=== PATIENT | female | born 1995 | race Caucasian/White ===

== ENCOUNTER 2018-09-28 16:40 | Emergency (ER) | payer OTHER ==
[2018-09-28 17:43] LABS: BASOPHILS % (AUTO) 0.5 %; EOSINOPHILS # (AUTO) 0.2 10^3/uL (0.0-0.7); EOSINOPHILS % (AUTO) 1.7 %; HGB - HEMOGLOBIN 12.3 g/dL (12.0-16.0); LYMPHOCYTES # (AUTO) 1.5 10^3/uL (1.5-3.5); LYMPHOCYTES % (AUTO) 15.2 %; MEAN CORPUSCULAR HGB CONC 34.3 g/dL (32.0-36.0); MEAN CORPUSCULAR VOLUME 87.5 fL (81.0-99.0); MEAN PLATELET VOLUME 7.5 fL (7.9-10.8); MONOCYTES # (AUTO) 0.5 10^3/uL (0.0-1.0); MONOCYTES % (AUTO) 5.4 %; NEUTROPHILS # (AUTO) 7.5 10^3/uL (1.5-6.6); NEUTROPHILS % (AUTO) 77.2 %; PLT - PLATELET COUNT 225 10^3/uL (130-450); RED BLOOD COUNT 4.09 10^6/uL (4.20-5.40); RED CELL DISTRIBUTION WIDTH 13.2 % (12.0-15.0); WHITE BLOOD COUNT 9.7 x10^3/uL (4.8-10.8)
--- NOTE | 2018-09-28 17:47 | ED Physician Documentation ---
PD HPI FEMALE - Stated complaint Stated Complaint: 18 WKS/CRAMP - Chief complaint Chief Complaint: Abd Pain - History obtained from History obtained from: Patient - History of Present Illness Timing - onset: How many hours ago (1) Timing - duration: Hours (1) Timing - details: Abrupt onset, Now resolved Pain level max: 2 Pain level max: 0 Associated symptoms: Abdominal pain. No: Fever, Back pain, Pelvic pain, Vaginal bleeding, Vaginal discharge, Genital sore/lesion, Dysuria, Urinary frequency, Hematuria Contributing factors: OB-EDUCATIONAL THERAPIST History: G (1), P (0). No: Termination(s), Miscarriage(s), Prior vag delivery, Prior C section, Prior ectopic Similar symptoms before: Has not had sx before Recently seen: Not recently seen - Additional information Additional information: 23-year-old female with no past medical or surgical history stated she is , 18 weeks , LMP was May 25, 2018, EDC is March 01, 2019 here with complaint of feeling wet while she was showering. And she noticed when she wiped herself there was clear liquidHe has small amounts. No further recurrence. Denies any vaginal discharge or bleeding. She stated she has a little cramping which started yesterday but increased today. Denies any trauma, travel or recent illness.She called her OB clinic at [facility] and was told to go to the closest emergency room. Denies any trauma, travel, recent illness, sexual activity recently. Review of Systems Ten Systems: 10 systems reviewed and negative Constitutional: denies: Fever, Chills Cardiac: denies: Chest pain / pressure Respiratory: denies: Dyspnea, Cough GI: reports: Abdominal Pain. denies: Nausea, Vomiting, Constipation, Diarrhea : reports: Now EGA. denies: Dysuria, Frequency, Incontinent, Hematuria, Discharge, Vaginal bleeding Musculoskeletal: denies: Back pain Neurologic: denies: Generalized weakness PD PAST MEDICAL HISTORY - Past Medical History Past Medical History: Yes - Past Surgical History Past Surgical History: Yes HEENT: Tonsil/Adenoidectomy - Present Medications Home Medications: Ambulatory Orders Medication Instructions Recorded Confirmed Pnv No.115/Iron Fumarate/FA 1 09/28/18 [ 19 Chewable Tablet] - Allergies Allergies/Adverse Reactions: Allergies Allergy/AdvReac Type Severity Reaction Status Date / Time No Known Drug Allergies Allergy Verified 09/28/18 16:54 - Social History Does the pt smoke?: No Smoking Status: Never smoker Does the pt drink ETOH?: No Does the pt have substance abuse?: No - Immunizations Immunizations are current?: Yes - POLST Patient has POLST: No PD ED PE NORMAL - Vitals Vital signs reviewed: Yes - General General: Alert and oriented X 3, No acute distress, Well developed/nourished - HEENT HEENT: Moist mucous membranes - Neck Neck: Supple, no meningeal sign - Cardiac Cardiac: RRR, No murmur - Respiratory Respiratory: No respiratory distress, Clear bilaterally - Abdomen Abdomen: Normal bowel sounds, Soft, Non tender, Non distended - Female Female : [employer]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 Vaginal vault dry. Rupture of membrane plus test was performed without any complications.) - Back Back: No CVA TTP - Derm Derm: Normal color, Warm and dry - Extremities Extremities: No deformity, Normal ROM s pain, No edema - Neuro Neuro: Alert and oriented X 3 - Psych Psych: Normal mood, Normal affect Results - Vitals Vitals: Vital Signs - 24 hr 09/28/18 09/28/18 16:51 18:52 Temperature 37.1 C 37.1 C Heart Rate 115 H 74 Respiratory 18 12 Rate Blood Pressure 153/78 H 122/77 O2 Saturation 100 100 Oxygen O2 Source Room air - Labs Labs: Laboratory Tests 09/28/18 09/28/18 09/28/18 17:03 17:25 17:25 WBC 9.7 RBC 4.09 L Hgb 12.3 Hct 35.7 L MCV 87.5 MCH 30.0 MCHC 34.3 RDW 13.2 Plt Count 225 MPV 7.5 L Neut # (Auto) 7.5 H Lymph # (Auto) 1.5 Scott # (Auto) 0.5 Eos # (Auto) 0.2 Baso # (Auto) 0.0 Absolute Nucleated RBC 0.00 Nucleated RBC % 0.0 Sodium 136 Potassium 3.5 Chloride 106 Carbon Dioxide 23 Anion Gap 7.0 BUN 10 Creatinine 0.5 Estimated GFR (MDRD) 153 Glucose 85 Calcium 9.2 Total Bilirubin 0.4 AST 16 ALT 12 Alkaline Phosphatase 38 L Total Protein 6.9 Albumin 3.6 Globulin 3.3 Albumin/Globulin Ratio 1.1 Lipase 29 HCG, Quant Urine Color YELLOW Urine Clarity CLEAR Urine pH 6.5 Ur Specific [place] <=1.005 Urine Protein NEGATIVE Urine Glucose (UA) NEGATIVE Urine Ketones NEGATIVE Urine Occult Blood NEGATIVE Urine Nitrite NEGATIVE Urine Bilirubin NEGATIVE Urine Urobilinogen 0.2 (NORMAL) Ur Leukocyte Esterase NEGATIVE Ur Microscopic Review NOT INDICATED Urine Culture Comments NOT INDICATED Membranes Rupture 09/28/18 09/28/18 17:25 19:49 WBC RBC Hgb Hct MCV MCH MCHC RDW Plt Count MPV Neut # (Auto) Lymph # (Auto) Scott # (Auto) Eos # (Auto) Baso # (Auto) Absolute Nucleated RBC Nucleated RBC % Sodium Potassium Chloride Carbon Dioxide Anion Gap BUN Creatinine Estimated GFR (MDRD) Glucose Calcium Total Bilirubin AST ALT Alkaline Phosphatase Total Protein Albumin Globulin Albumin/Globulin Ratio Lipase HCG, Quant 30385.00 Urine Color Urine Clarity Urine pH Ur Specific [place] Urine Protein Urine Glucose (UA) Urine Ketones Urine Occult Blood Urine Nitrite Urine Bilirubin Urine Urobilinogen Ur Leukocyte Esterase Ur Microscopic Review Urine Culture Comments Membranes Rupture NEGATIVE PD MEDICAL DECISION MAKING - ED course Complexity details: re-evaluated patient, considered differential (, Rupture of membrane, Threatened miscarriage, demise, UTI, normal physiologic vaginal secretions.), d/w patient, d/w family, d/w corporate consultant ED course: 1904 patient and spouse informed of test results including ultrasound. Inform of pending OB doctor return phone call. Patient denies any abdominal pain or recurrence of vaginal secretions. 1914discussed case with OB doctor aircraft electronics technical officer Dr. Jimenez Informed of ultrasound results and its specific. He wants to do an amniotic test which can be done by the OB L&D nurse. He will call them to go to the emergency room with the test.1930 L&D nurse here with the amniotic fluid test. See physical exam notes. 2029 Rupture of membrane test was negative. Patient informed about that and she stated she has an appointment with her OB next week and will follow up. Departure - Departure Disposition: 01 Home, Self Care Clinical Impression: Abdominal pain Qualifiers: Abdominal location: lower abdomen, unspecified Qualified Code(s): R10.30 - Lower abdominal pain, unspecified Qualifiers: Weeks of gestation: 18 weeks Qualified Code(s): Z3A.18 - 18 weeks gestation of Condition: Stable Instructions: ED Care, ED Preg Established Normal Sxs Comments: If worsening abdominal cramping, increasing vaginal secretions or vaginal bleeding return to the emergency room. Otherwise keep your OB appointment as scheduled next week on Wednesday.
[2018-09-28 17:56] LABS: ALBUMIN 3.6 g/dL (3.2-5.5); ALBUMIN/GLOBULIN RATIO 1.1 (1.0-2.2); BILIRUBIN,TOTAL 0.4 mg/dL (0.2-1.0); CALCIUM 9.2 mg/dL (8.5-10.3); CREATININE 0.5 mg/dL (0.4-1.0); TOTAL PROTEIN 6.9 g/dL (6.7-8.2)
[2018-09-28 18:00] LABS: BILIRUBIN,URINE NEGATIVE (NEGATIVE); GLUCOSE, URINE (UA) NEGATIVE (NEGATIVE); KETONES,URINE (UA) NEGATIVE (NEGATIVE); LEUKOCYTE ESTERASE, URINE NEGATIVE (NEGATIVE); NITRITE,URINE NEGATIVE (NEGATIVE); OCCULT BLOOD,URINE NEGATIVE (NEGATIVE); PH,URINE 6.5 PH (5.0-7.5); PROTEIN,URINE NEGATIVE (NEGATIVE); UROBILINOGEN,URINE 0.2 (NORMAL) E.U./dL (NORMAL)
[2018-09-28 18:14] LABS: CLARITY,URINE CLEAR (CLEAR)
--- NOTE | 2018-09-28 19:04 | Ultrasound Report ---
Reason: cramping Procedure Date: 09/28/2018 Accession Number: [id number] / [id number] Procedure: US - OB 14+ Weeks CPT Code: FULL RESULT: EXAM: LIMITED OBSTETRICAL ULTRASOUND EXAM DATE: 09/28/2018 06:11 PM. CLINICAL HISTORY: Cramping. Evaluate KATHERIN and cervical length. COMPARISON: OB ultrasound 07/15/2018. TECHNIQUE: Real-time sonographic evaluation of the fetus performed by the enamel cracker. Multiple order entry representative static images were saved for review. DATING: Established EGA 18 weeks 0 days with ABEL 03/01/2019. GENERAL EVALUATION Valadez . Cardiac activity: 143 bpm. movement: Visualized. Presentation: Mainly breech, moving Placenta: Anterior position. Low lying placenta with the edge located 1 cm away from the internal cervical loss and follow-up is recommended. Borderline thickened placenta measuring 3.3 cm. Follow-up of these findings recommended. Also, recommend a complete anatomic survey at 20 weeks gestational age. No evidence for placenta previa or abruption. Amniotic fluid: Normal. KATHERIN 13.2 cm. MVP 5.4 cm. Cervical length measures 3.6 cm, appears long and closed. IMPRESSION: 1. Valadez live intrauterine with gestational age 18 weeks 0 days based on established ABEL. 2. Normal KATHERIN measuring 13.2 cm. 3. Cervical length measures 3.6 cm, appears long and closed. 4. Low lying placenta with the edge located 1 cm away from the internal cervical loss and follow-up is recommended. Borderline thickened placenta measuring 3.3 cm. Follow-up of these findings recommended. Also, recommend a complete anatomic survey at 20 weeks gestational age. RADIA
[2018-09-28 20:17] LABS: RUPTURE OF MEMBRANES PLUS NEGATIVE (NEGATIVE)
[2018-09-28 20:39] VITALS: BP 117/80
== END 2018-09-28 20:37 | disposition home or self-care (01) ==
LOC: ED 16:40
DX: O99.89 Other specified diseases and conditions complicating pregnancy, childbirth and the puerperium (principal); R10.30 Lower abdominal pain, unspecified; Z3A.18 18 weeks gestation of pregnancy
CPT/HCPCS: 36415; 76805; 80053; 81001; 81003; 83690; 84112; 84702; 85025; 87086; 99283

== ENCOUNTER 2019-01-29 19:42 | Outpatient (CLI) | payer OTHER ==
[2019-01-29 20:08] VITALS: BP 135/80
== END 2019-01-29 21:15 | disposition home or self-care (01) ==
LOC: WFO 19:42 → FBP 19:45 → WFO 21:15
PROVIDERS: ATTEND Obstetrics & Gynecology
DX: O99.89 Other specified diseases and conditions complicating pregnancy, childbirth and the puerperium (principal); N94.89 Other specified conditions associated with female genital organs and menstrual cycle; Z3A.35 35 weeks gestation of pregnancy
CPT/HCPCS: 99212

== ENCOUNTER 2019-01-31 12:36 | Outpatient (CLI) | payer OTHER ==
[2019-01-31 12:48] VITALS: BP 124/77
[2019-01-31 13:06] LABS: BILIRUBIN,URINE NEGATIVE (NEGATIVE); GLUCOSE, URINE (UA) NEGATIVE (NEGATIVE); KETONES,URINE (UA) NEGATIVE (NEGATIVE); LEUKOCYTE ESTERASE, URINE NEGATIVE (NEGATIVE); NITRITE,URINE NEGATIVE (NEGATIVE); OCCULT BLOOD,URINE NEGATIVE (NEGATIVE); PROTEIN,URINE NEGATIVE (NEGATIVE); UROBILINOGEN,URINE 0.2 (NORMAL) E.U./dL (NORMAL)
[2019-01-31 13:10] LABS: CLARITY,URINE CLEAR (CLEAR)
[2019-01-31 13:22] LABS: BACTERIA,URINE Few /HPF (None Seen); RBC,URINE 0-5 /HPF (0-5); SQUAMOUS EPITHELIAL CELL,UR FEW Squamous (<= Few)
== END 2019-01-31 13:50 | disposition home or self-care (01) ==
LOC: WFO 12:36 → FBP 12:39 → WFO 13:50
PROVIDERS: ATTEND Obstetrics & Gynecology
DX: O99.89 Other specified diseases and conditions complicating pregnancy, childbirth and the puerperium (principal); R25.2 Cramp and spasm; Z3A.35 35 weeks gestation of pregnancy
CPT/HCPCS: 81001; 87086; 99213

== ENCOUNTER 2019-02-06 22:50 | Outpatient (CLI) | payer OTHER ==
[2019-02-07] MEDS ORDERED: SODIUM CHLORIDE FLUSH 0.9% 10 ML SYRINGE ONE (00:25)
[2019-02-07 00:34] LABS: BASOPHILS # (AUTO) 0.1 10^3/uL (0.0-0.1); BASOPHILS % (AUTO) 0.5 %; EOSINOPHILS # (AUTO) 0.2 10^3/uL (0.0-0.7); EOSINOPHILS % (AUTO) 1.2 %; HGB - HEMOGLOBIN 12.1 g/dL (12.0-16.0); LYMPHOCYTES # (AUTO) 1.7 10^3/uL (1.5-3.5); LYMPHOCYTES % (AUTO) 12.8 %; MEAN CORPUSCULAR HEMOGLOBIN 30.1 pg (27.0-31.0); MEAN CORPUSCULAR HGB CONC 34.1 g/dL (32.0-36.0); MEAN CORPUSCULAR VOLUME 88.1 fL (81.0-99.0); MEAN PLATELET VOLUME 7.5 fL (7.9-10.8); MONOCYTES # (AUTO) 1.3 10^3/uL (0.0-1.0); MONOCYTES % (AUTO) 9.8 %; NEUTROPHILS % (AUTO) 75.7 %; PLT - PLATELET COUNT 186 10^3/uL (130-450); RED BLOOD COUNT 4.04 10^6/uL (4.20-5.40); RED CELL DISTRIBUTION WIDTH 13.7 % (12.0-15.0); WHITE BLOOD COUNT 13.2 x10^3/uL (4.8-10.8)
[2019-02-07 00:44] LABS: ALBUMIN 2.9 g/dL (3.2-5.5); ALBUMIN/GLOBULIN RATIO 0.9 (1.0-2.2); BILIRUBIN,TOTAL 0.6 mg/dL (0.2-1.0); CALCIUM 9.1 mg/dL (8.5-10.3); CREATININE 0.5 mg/dL (0.4-1.0); TOTAL PROTEIN 6.3 g/dL (6.7-8.2)
[2019-02-07 01:05] VITALS: BP 126/76
[2019-02-07 01:24] LABS: CREATININE,URINE 68.6 mg/dL; PROTEIN/CREATININE RATIO,URINE 0.1 (<=0.2)
[2019-02-07 01:48] LABS: RUPTURE OF MEMBRANES PLUS NEGATIVE (NEGATIVE)
[2019-02-07] MEDS ORDERED: hydrOXYzine PAMOATE 25 MG CAPSULE PO SCH (02:07)
== END 2019-02-07 03:02 | disposition home or self-care (01) ==
LOC: WFO 22:50 → FBP 22:53 → WFO 02-07 03:02
PROVIDERS: ATTEND Obstetrics & Gynecology
DX: O47.03 False labor before 37 completed weeks of gestation, third trimester (principal); Z3A.36 36 weeks gestation of pregnancy
CPT/HCPCS: 36415; 80053; 82570; 84112; 84156; 85025; 87210; A9270; 99213

== ENCOUNTER 2019-11-29 19:12 | Emergency (ER) | payer OTHER ==
[2019-11-29 20:04] LABS: BASOPHILS % (AUTO) 0.7 %; EOSINOPHILS # (AUTO) 0.2 10^3/uL (0.0-0.7); EOSINOPHILS % (AUTO) 3.7 %; HGB - HEMOGLOBIN 13.1 g/dL (12.0-16.0); LYMPHOCYTES # (AUTO) 1.9 10^3/uL (1.5-3.5); LYMPHOCYTES % (AUTO) 35.8 %; MEAN CORPUSCULAR HGB CONC 32.5 g/dL (32.0-36.0); MEAN CORPUSCULAR VOLUME 89.4 fL (81.0-99.0); MEAN PLATELET VOLUME 9.3 fL (7.9-10.8); MONOCYTES # (AUTO) 0.5 10^3/uL (0.0-1.0); MONOCYTES % (AUTO) 8.4 %; NEUTROPHILS # (AUTO) 2.7 10^3/uL (1.5-6.6); PLT - PLATELET COUNT 257 10^3/uL (130-450); RED BLOOD COUNT 4.51 10^6/uL (4.20-5.40); RED CELL DISTRIBUTION WIDTH 12.4 % (12.0-15.0); WHITE BLOOD COUNT 5.4 x10^3/uL (4.8-10.8)
[2019-11-29 20:19] LABS: ALBUMIN 4.4 g/dL (3.2-5.5); ALBUMIN/GLOBULIN RATIO 1.3 (1.0-2.2); BILIRUBIN,TOTAL 0.7 mg/dL (0.2-1.0); CALCIUM 9.5 mg/dL (8.5-10.3); CREATININE 0.8 mg/dL (0.4-1.0); TOTAL PROTEIN 7.7 g/dL (6.7-8.2)
[2019-11-29 21:11] LABS: BILIRUBIN,URINE NEGATIVE (NEGATIVE); GLUCOSE, URINE (UA) NEGATIVE (NEGATIVE); KETONES,URINE (UA) TRACE mg/dL (NEGATIVE); LEUKOCYTE ESTERASE, URINE NEGATIVE (NEGATIVE); NITRITE,URINE NEGATIVE (NEGATIVE); OCCULT BLOOD,URINE NEGATIVE (NEGATIVE); PROTEIN,URINE NEGATIVE (NEGATIVE); UROBILINOGEN,URINE 0.2 (NORMAL) E.U./dL (NORMAL)
[2019-11-29 21:13] LABS: CLARITY,URINE CLEAR (CLEAR)
[2019-11-29 21:14] LABS: HCG UR QUAL NEGATIVE
--- NOTE | 2019-11-29 22:02 | ED Physician Documentation ---
PD HPI ABD PAIN - Stated complaint Stated Complaint: AB PX - Chief complaint Chief Complaint: Abd Pain - History obtained from History obtained from: Patient, Family - History of Present Illness Timing - onset: How many months ago (6) Timing - duration: Months (6) Timing - details: Gradual onset, Waxing and waning Pain level max: 5 Pain level now: 0 Quality: Cramping, Pain Location: All over / everywhere Associated symptoms: No: Fever, Vomiting, Hematemesis, Diarrhea, Constipation, Melena, Hematochezia - Additional information Additional information: 24-year-old female states that she has had intermittent abdominal pain for the last 6 to 7 months. Has seen her doctor for this and is awaiting H. pylori testing. No diarrhea. No vomiting. There is a history of Crohn's disease in the family. No fevers. She states that the pain started after giving several months ago. No pain currently. She has not seen a GI doctor yet. The pain usually resolves with dicyclomine Review of Systems Constitutional: denies: Fever, Chills Respiratory: denies: Cough GI: denies: Vomiting, Diarrhea, Hematemesis, Bloody / black stool : denies: Dysuria Skin: denies: Rash Musculoskeletal: denies: Neck pain, Back pain PD PAST MEDICAL HISTORY - Past Medical History Past Medical History: No - Past Surgical History Past Surgical History: Yes HEENT: Tonsil/Adenoidectomy - Present Medications Home Medications: Ambulatory Orders Medication Instructions Recorded Confirmed No115/Iron/Folic Acid 1 09/28/18 [ 19 Chewable Tablet] - Allergies Allergies/Adverse Reactions: Allergies Allergy/AdvReac Type Severity Reaction Status Date / Time ciprofloxacin Allergy Unknown Verified 11/29/19 19:23 - Social History Does the pt smoke?: No Smoking Status: Never smoker Does the pt drink ETOH?: No Does the pt have substance abuse?: No - Immunizations Immunizations are current?: Yes - POLST Patient has POLST: No PD ED PE NORMAL - Vitals Vital signs reviewed: Yes - General General: Alert and oriented X 3, No acute distress, Well developed/nourished - HEENT HEENT: Moist mucous membranes - Neck Neck: Supple, no meningeal sign - Cardiac Cardiac: RRR, Strong equal pulses - Respiratory Respiratory: No respiratory distress, Clear bilaterally - Abdomen Abdomen: Soft, Non tender, Non distended - Back Back: No CVA TTP, No spinal TTP - Derm Derm: Warm and dry, No rash - Extremities Extremities: No edema - Neuro Neuro: Alert and oriented X 3 - Psych Psych: Normal mood, Normal affect Results - Vitals Vitals: Vital Signs - 24 hr 11/29/19 11/29/19 19:23 22:08 Temperature 36.5 C 36.8 C Heart Rate 69 61 Respiratory 14 16 Rate Blood Pressure 130/79 129/70 O2 Saturation 100 99 Oxygen O2 Source Room air - Labs Labs: Laboratory Tests 11/29/19 11/29/19 11/29/19 19:56 19:56 21:05 WBC 5.4 RBC 4.51 Hgb 13.1 Hct 40.3 MCV 89.4 MCH 29.0 MCHC 32.5 RDW 12.4 Plt Count 257 MPV 9.3 Neut # (Auto) 2.7 Lymph # (Auto) 1.9 [place] # (Auto) 0.5 Eos # (Auto) 0.2 Baso # (Auto) 0.0 Absolute Nucleated RBC 0.00 Nucleated RBC % 0.0 Sodium 139 Potassium 3.7 Chloride 103 Carbon Dioxide 25 Anion Gap 11.0 BUN 13 Creatinine 0.8 Estimated GFR (MDRD) 88 L Glucose 97 Calcium 9.5 Total Bilirubin 0.7 AST 18 ALT 17 Alkaline Phosphatase 50 Total Protein 7.7 Albumin 4.4 Globulin 3.3 Albumin/Globulin Ratio 1.3 Lipase 30 Urine Color YELLOW Urine Clarity CLEAR Urine pH 6.0 Ur Specific [place] 1.010 Urine Protein NEGATIVE Urine Glucose (UA) NEGATIVE Urine Ketones TRACE Urine Occult Blood NEGATIVE Urine Nitrite NEGATIVE Urine Bilirubin NEGATIVE Urine Urobilinogen 0.2 (NORMAL) Ur Leukocyte Esterase NEGATIVE Ur Microscopic Review NOT INDICATED Urine Culture Comments NOT INDICATED Urine HCG, Qual NEGATIVE PD MEDICAL DECISION MAKING - ED course Complexity details: reviewed results, re-evaluated patient, considered differential, d/w patient ED course: 24-year-old female with abdominal pain of unclear etiology. No significant lab abnormalities. Asymptomatic here. We will have her follow-up with her doctor for further care. Patient counseled regarding signs and symptoms for which I believe and urgent re-evaluation would be necessary. Patient with good understanding of and agreement to plan and is comfortable going home at this time This document was made in part using voice recognition software. While efforts are made to proofread this document, sound alike and grammatical errors may occur. Departure - Departure Disposition: 01 Home, Self Care Clinical Impression: Abdominal pain Qualifiers: Abdominal location: generalized Qualified Code(s): R10.84 - Generalized abdominal pain Condition: Good Instructions: ED Abdominal Pain Unkn Cause Follow-Up: your,doctor in 1 week [Other] Comments: The cause of your symptoms is unclear today. You should have an endoscopy and colonoscopy with a GI physician for further care. If you are not already seen a fruit packer face and fill, your doctor should refer you to one. Discharge Date/Time: 11/29/19 22:09
[2019-11-29 22:10] VITALS: BP 129/70
== END 2019-11-29 22:09 | disposition home or self-care (01) ==
LOC: ED 19:12
DX: R10.84 Generalized abdominal pain (principal); Z83.79 Family history of other diseases of the digestive system
CPT/HCPCS: 36415; 80053; 81001; 81003; 81025; 83690; 85025; 87086; 99283; 99284

== ENCOUNTER 2019-12-06 08:00 | Outpatient (CLI) | payer OTHER ==
[2019-12-06 15:53] LABS: H. PYLORIS ANTIGEN STL NEGATIVE (Negative)
== END 2019-12-06 23:59 | disposition home or self-care (01) ==
LOC: LAB.R 08:00
DX: R10.84 Generalized abdominal pain (principal); M79.632 Pain in left forearm
CPT/HCPCS: 87338

== ENCOUNTER 2019-12-18 08:35 | Outpatient (CLI) | payer OTHER ==
--- NOTE | 2019-12-18 16:42 | Ultrasound Report ---
Reason: ABDOMEN PAIN Procedure Date: 12/18/2019 Accession Number: [id number] / [id number] Procedure: US - Abdomen Complete CPT Code: Final Report FULL RESULT: EXAM: ABDOMEN ULTRASOUND EXAM DATE: 12/18/2019 09:42 AM. CLINICAL HISTORY: Abdominal pain and nausea for 6 months. COMPARISON: None. TECHNIQUE: Real-time scanning was performed with static images obtained. FINDINGS: Liver: Normal in size and echotexture. 16.5 cm. Main portal vein flow: Hepatopetal. Gallbladder: No stones or wall thickening evident. Some gallbladder sludge present in the neck. Negative sonographic Arcos sign. Biliary System: Common bile duct measures 4 mm. No intrahepatic or extrahepatic ductal dilatation. Pancreas: Visualized portion is unremarkable. Kidneys: Right: 12.0 cm longitudinally. Normal. No contour-deforming mass, stones, or hydronephrosis. Left: 12.2 cm longitudinally. Normal. No contour-deforming mass, stones, or hydronephrosis. Spleen: 13.0 cm. Estimated volume 260 cc, upper normal. No focal masses. Aorta and Inferior Vena Cava: Unremarkable. Other: None. IMPRESSION: 1. Small gallbladder but no stones or evidence of acute cholecystitis. 2. Spleen upper limits of normal in size. 3. No hydronephrosis. RADIA
== END 2019-12-18 08:36 | disposition home or self-care (01) ==
LOC: DI 08:35
PROVIDERS: ATTEND Student in an Organized Health Care Education/Training Program
DX: R10.84 Generalized abdominal pain (principal); R11.0 Nausea
CPT/HCPCS: 76700

== ENCOUNTER 2020-01-31 17:50 | Outpatient (CLI) | payer OTHER | END 2020-01-31 17:51 | disposition home or self-care (01) | LOC: COV 17:50 | PROVIDERS: ATTEND Family Medicine | DX: R05 Cough (principal) ==

== ENCOUNTER 2022-03-18 08:00 | Outpatient (CLI) | payer OTHER | END 2022-03-18 23:59 | disposition home or self-care (01) | LOC: LAB 08:00 → MERGE 12:50 → LAB 23:59 | DX: Z01.89 Encounter for other specified special examinations (principal) | CPT/HCPCS: 36415 ==

== ENCOUNTER 2022-07-10 09:29 | Outpatient (CLI) | payer OTHER ==
[2022-07-10 12:08] LABS: BASOPHILS # (AUTO) 0.1 10^3/uL (0.0-0.1); BASOPHILS % (AUTO) 0.8 %; EOSINOPHILS # (AUTO) 0.3 10^3/uL (0.0-0.7); EOSINOPHILS % (AUTO) 4.3 %; HCT - HEMATOCRIT 38.9 % (37.0-47.0); HGB - HEMOGLOBIN 13.4 g/dL (12.0-16.0); LYMPHOCYTES # (AUTO) 1.3 10^3/uL (1.5-3.5); LYMPHOCYTES % (AUTO) 17.6 %; MEAN CORPUSCULAR HEMOGLOBIN 30.2 pg (27.0-31.0); MEAN CORPUSCULAR HGB CONC 34.4 g/dL (32.0-36.0); MEAN CORPUSCULAR VOLUME 87.8 fL (81.0-99.0); MEAN PLATELET VOLUME 10.4 fL (7.9-10.8); MONOCYTES # (AUTO) 0.6 10^3/uL (0.0-1.0); MONOCYTES % (AUTO) 7.7 %; NEUTROPHILS # (AUTO) 5.1 10^3/uL (1.5-6.6); NEUTROPHILS % (AUTO) 69.3 %; PLT - PLATELET COUNT 250 10^3/uL (130-450); RED BLOOD COUNT 4.43 10^6/uL (4.20-5.40); RED CELL DISTRIBUTION WIDTH 12.1 % (12.0-15.0); WHITE BLOOD COUNT 7.4 x10^3/uL (4.8-10.8)
[2022-07-11 03:08] LABS: HBsAG SCREEN Negative (Negative); HCV AB <0.1 s/co ratio (0.0-0.9)
[2022-07-11 05:10] LABS: HIV SCREEN 4TH GENERATION Non Reactive (Non Reactive)
[2022-07-11 06:10] LABS: RPR Non Reactive (Non Reactive)
[2022-07-11 08:09] LABS: VARICELLA-ZOSTER AB IGG 1339 index (Immune >165)
== END 2022-07-10 09:30 | disposition home or self-care (01) ==
LOC: LAB.N 09:29
PROVIDERS: ATTEND Nurse Practitioner Obstetrics & Gynecology
DX: Z36.89 Encounter for other specified antenatal screening (principal)
CPT/HCPCS: 36415; 84163; 85025; 86592; 86762; 86787; 86803; 86850; 86900; 86901; 87340; 87389

== ENCOUNTER 2022-09-15 13:18 | Outpatient (CLI) | payer OTHER ==
--- NOTE | 2022-09-15 17:08 | Ultrasound Report ---
PROCEDURE: OB Detailed Eval INDICATIONS: SUPERVISION OF OUTSIDE/PRIOR DATING DATA: Last menstrual period (LMP): 04/30/2022. LMP-based estimated date of delivery (ABEL): 02/04/2023. First dating scan (date and location): 06/24/2022. Estimated date of delivery (ABEL) from first dating scan: 02/07/2023. The below data below was generated using the ultrasound ABEL of 06/24/2022 TECHNIQUE: Real-time scanning was performed of the fetus, with image documentation and biometric measurements. COMPARISON: Outside image dated 06/24/2022 FINDINGS: General: A single living intrauterine gestation is present. Presentation: Very Placenta: Placental position is posterior, without previa. Amniotic fluid index: 11 point cm, within normal limits for gestational age. Largest pocket measur es 3.7 cm heart rate: 143 beats per minute. Maternal cervical canal: 4.3 cm long; normal length is 2.5 cm or more. biometrics: Biparietal diameter: 4.6 cm 20 weeks 0 days Head circumference: 16.7 cm 19 weeks 3 days Abdominal circumference: 14.8 cm 20 weeks 0 days Femur length: 3.0 cm 19 weeks 2 days Estimated gestational age from initial scan: 19 weeks 2 days. Composite gestational age from present scan: 19 weeks 5 days Estimated weight and percentile: 306 g 69th percentile Measurement variability in biometric dating: +/- 10 days from 12-20 weeks gestation, +/- 2 weeks from 20-30 weeks gestation, +/- 3 weeks at 30 weeks gestation or later. Anatomic survey: Neuro: Ventricles are normal at less than 10 mm. Cisterna magna is normal at 3-11 mm. Cerebellum i s normal in size and morphology. Nuchal skin fold: Normal at less than 6 mm between 14 and 20 weeks gestational age. Face: Nose and lips, facial profile are normal. Spine: No evidence for spina bifida. Heart: 4-chambered heart is present, with normal ventricular outflow tracts. Diaphragm: Diaphragm is intact. Stomach: Left-sided stomach is present. Kidneys: No hydronephrosis. Normal is less than 5 mm in 2nd trimester, less than 7 mm in 3rd trimester. Cord: 3 vessel cord has orthotopic insertion. Bladder: Normal in size. Extremities: All 4 extremities are visualized. IMPRESSION: Single live intrauterine with ultrasound gestational age today of 19 weeks 5 days. Anatomy is within normal limits. Reviewed by: Nani Gillespie MD on 09/15/2022 5:06 PM PST Approved by: Nani Gillespie MD on 09/15/2022 5:06 PM [facility] Station ID: [id number]
== END 2022-09-15 13:19 | disposition home or self-care (01) ==
LOC: DI 13:18
PROVIDERS: ATTEND Nurse Practitioner Obstetrics & Gynecology
DX: Z36.89 Encounter for other specified antenatal screening (principal)

== ENCOUNTER 2022-09-16 14:53 | Outpatient (CLI) | payer OTHER ==
[2022-09-21 06:08] LABS: AFP MOM See Comments (.); AFP VALUE 58.1 ng/mL (.); DIA MOM See Comments (.); DIA VALUE 105.8 pg/mL (.); DOWN SYNDROME See Comments (.); GESTATIONAL AGE See Comments weeks (.); HCG MOM See Comments (.); HCG VALUE 15.2 IU/mL (.); MATERNAL AGE AT EDD See Comments yr (.); OPEN SPINA BIFIDA See Comments (.); PAPP-A MOM See Comments (.); PAPP-A VALUE 274.7 ng/mL (.); TEST RESULTS See Comments (.); TRISOMY 18 See Comments (.); UE3 MOM See Comments (.); UE3 VALUE 2.07 ng/mL (.)
== END 2022-09-16 14:54 | disposition home or self-care (01) ==
LOC: LAB 14:53
PROVIDERS: ATTEND Nurse Practitioner Obstetrics & Gynecology
DX: Z13.79 Encounter for other screening for genetic and chromosomal anomalies (principal)
CPT/HCPCS: 36415; 82105; 82677; 84702; 86336

== ENCOUNTER 2022-10-08 15:35 | Outpatient (CLI) | payer OTHER ==
[2022-10-08 16:15] LABS: BASOPHILS % (AUTO) 0.4 %; EOSINOPHILS # (AUTO) 0.2 10^3/uL (0.0-0.7); EOSINOPHILS % (AUTO) 1.9 %; HCT - HEMATOCRIT 34.4 % (37.0-47.0); HGB - HEMOGLOBIN 11.6 g/dL (12.0-16.0); LYMPHOCYTES # (AUTO) 1.3 10^3/uL (1.5-3.5); LYMPHOCYTES % (AUTO) 13.9 %; MEAN CORPUSCULAR HEMOGLOBIN 29.9 pg (27.0-31.0); MEAN CORPUSCULAR HGB CONC 33.7 g/dL (32.0-36.0); MEAN CORPUSCULAR VOLUME 88.7 fL (81.0-99.0); MEAN PLATELET VOLUME 9.3 fL (7.9-10.8); MONOCYTES # (AUTO) 0.6 10^3/uL (0.0-1.0); MONOCYTES % (AUTO) 6.5 %; NEUTROPHILS # (AUTO) 6.9 10^3/uL (1.5-6.6); NEUTROPHILS % (AUTO) 76.7 %; PLT - PLATELET COUNT 198 10^3/uL (130-450); RED BLOOD COUNT 3.88 10^6/uL (4.20-5.40); RED CELL DISTRIBUTION WIDTH 12.5 % (12.0-15.0)
[2022-10-08 16:28] LABS: ALBUMIN 3.2 g/dL (3.2-5.5); BILIRUBIN,TOTAL 0.4 mg/dL (0.2-1.0); CALCIUM 8.9 mg/dL (8.5-10.3); CREATININE 0.5 mg/dL (0.4-1.0); POTASSIUM 3.8 mmol/L (3.5-5.0); TOTAL PROTEIN 6.5 g/dL (6.7-8.2)
[2022-10-08 16:32] LABS: CREATININE,URINE 43.2 mg/dL
[2022-10-08 16:33] LABS: TOTAL PROTEIN,URINE TIMED < 6 mg/dL
[2022-10-08 17:07] VITALS: BP 122/69
--- NOTE | 2022-10-08 17:20 | PROVIDER PROGRESS NOTE ---
- HPI Chief Complaint: Hypertension/PIH Current : Vital Signs Temperature 36.9 C 10/08/22 15:57 Heart Rate 79 10/08/22 15:57 Respiratory Rate 16 10/08/22 15:57 Blood Pressure 119/74 10/08/22 15:57 Temperature 36.9 C 10/08/22 16:00 Heart Rate 79 10/08/22 16:00 Respiratory Rate 16 10/08/22 16:00 Blood Pressure 122/69 10/08/22 17:00 O2 Saturation 100 10/08/22 16:00 If not protocol: Oxygen Flow, liters/minute - Procedures Diagnosis/Indication for NST: Gestational Hypertension - Plan Plan: Balaji is a 27yo @ 23.0wks gestation who presents with concern for elevated blood pressure. She states she was feeling lightheaded and experienced blurry vision so she sat down and took her blood pressure with a manual cuff herself which read 150/90. She then proceeded to call her neighbor who came over to her house with a wrist BP cuff and her blood pressure was 140/80. She had eaten lunch 2hrs prior and had drank 32 ounces of water with electrolytes. She has a history of gestational hypertension and was concerned that she was experiencing these symptoms in the presence of elevated blood pressures. She denies vaginal bleeding, leakage of fluid or contractions. She reports +FM. Hgb 11.6; Hct 34.4 WBC 9.0 PLT 198 AST 14; ALT 11 Cr 0.5; BUN 13 Urine protein/creatinine ratio <6 (not reportable)
== END 2022-10-08 17:15 | disposition home or self-care (01) ==
LOC: WFO 15:35 → FBP 15:36 → WFO 17:15
PROVIDERS: ATTEND Nurse Practitioner Obstetrics & Gynecology
DX: O99.891 Other specified diseases and conditions complicating pregnancy (principal); R03.0 Elevated blood-pressure reading, without diagnosis of hypertension
CPT/HCPCS: 36415; 80053; 82570; 84156; 85025; 99215

== ENCOUNTER 2023-01-31 20:54 | Outpatient (CLI) | payer OTHER ==
[2023-01-31 22:16] LABS: BASOPHILS % (AUTO) 0.4 %; EOSINOPHILS # (AUTO) 0.3 10^3/uL (0.0-0.7); EOSINOPHILS % (AUTO) 2.9 %; HCT - HEMATOCRIT 36.4 % (37.0-47.0); HGB - HEMOGLOBIN 12.1 g/dL (12.0-16.0); LYMPHOCYTES # (AUTO) 1.4 10^3/uL (1.5-3.5); LYMPHOCYTES % (AUTO) 15.1 %; MEAN CORPUSCULAR HEMOGLOBIN 29.4 pg (27.0-31.0); MEAN CORPUSCULAR HGB CONC 33.2 g/dL (32.0-36.0); MEAN CORPUSCULAR VOLUME 88.6 fL (81.0-99.0); MEAN PLATELET VOLUME 9.9 fL (7.9-10.8); MONOCYTES # (AUTO) 0.8 10^3/uL (0.0-1.0); MONOCYTES % (AUTO) 8.4 %; NEUTROPHILS # (AUTO) 6.7 10^3/uL (1.5-6.6); NEUTROPHILS % (AUTO) 70.3 %; PLT - PLATELET COUNT 152 10^3/uL (130-450); RED BLOOD COUNT 4.11 10^6/uL (4.20-5.40); RED CELL DISTRIBUTION WIDTH 13.9 % (12.0-15.0); WHITE BLOOD COUNT 9.5 x10^3/uL (4.8-10.8)
[2023-01-31 22:18] LABS: CREATININE,URINE 17.7 mg/dL; TOTAL PROTEIN,URINE TIMED < 6 mg/dL
[2023-01-31 22:28] LABS: ALBUMIN 3.1 g/dL (3.2-5.5); ALBUMIN/GLOBULIN RATIO 1.1 (1.0-2.2); BILIRUBIN,TOTAL 0.5 mg/dL (0.2-1.0); CREATININE 0.5 mg/dL (0.4-1.0); POTASSIUM 3.5 mmol/L (3.5-5.0); TOTAL PROTEIN 5.9 g/dL (6.7-8.2)
[2023-01-31 23:21] VITALS: BP 142/83
--- NOTE | 2023-02-01 13:29 | PROVIDER PROGRESS NOTE ---
- HPI Chief Complaint: Hypertension/PIH Current : Current EDU 02/04/23 Gestation 39 Weeks and 3 Days 2 Para 1 Vital Signs Temperature 36.8 C 01/31/23 21:45 Heart Rate 100 01/31/23 21:45 Respiratory Rate 18 01/31/23 21:45 Blood Pressure 142/83 H 01/31/23 21:45 O2 Saturation 98 01/31/23 21:45 Temperature 36.8 C 01/31/23 23:19 Heart Rate 100 01/31/23 23:19 Respiratory Rate 18 01/31/23 23:19 Blood Pressure 142/83 H 01/31/23 23:19 O2 Saturation 98 01/31/23 21:45 If not protocol: Oxygen Flow, liters/minute - Procedures OB Procedure Performed: NST Diagnosis/Indication for NST: Gestational Hypertension NST Procedure: NST Procedure Start Date 01/31/23 Start Time 22:00 Stop Time 22:30 Vibroacoustic Stimulation Used No Patient States Movement Yes - Plan Plan: Balaji is a 27yo @ 39.3wks gestation who presents to [facility] with concerns for elevated blood pressure and intermittent headaches. She states she is adequately hydrated and nourished and she has not done any different activities throughout her day today than she normally does. She denies edema. She reports +FM. She denies vaginal bleeding or leakage of fluid. She reports intermittent, mild contractions for the past several days and has also felt increased lower pelvic pressure. She states she felt "funny" and sat down to take her blood pressure and her first reading at home was 144/80 and the second was 138/92. She reported these findings and it was recommended she present for evaluation. BP upon arrival 142/76 with repeats all WNL. Her most recent BP was 117/62. Heart RRR w/o M/G/R, lungs CTAB. No RUQ tenderness noted. DTRs 1+, no clonus. CBC WNL CMP WNL Urine protein/creatinine ratio >0.1/not reportable NST reactive. FHR baseline 140s, moderate variability, + accels, no decels Contractions palpate mild intermittently with soft resting tone SVE 1/50/-3, posterior. Vertex. Pt released home with precautions. Will f/u in office on Wednesday for BP check or sooner PRN. Reviewed warning s/sx and when to present. Pt verbalized understanding and agrees to above plan. She denies further questions or concerns at this time. FINAL DIAGNOSIS: Elevated blood pressure without the diagnosis of hypertension, third trimester
== END 2023-01-31 23:00 | disposition home or self-care (01) ==
LOC: WFO 20:54 → FBP 20:57 → WFO 23:00
PROVIDERS: ATTEND Nurse Practitioner Obstetrics & Gynecology
DX: O99.891 Other specified diseases and conditions complicating pregnancy (principal); R03.0 Elevated blood-pressure reading, without diagnosis of hypertension; R51.9 Headache, unspecified; Z3A.39 39 weeks gestation of pregnancy
CPT/HCPCS: 36415; 59025; 80053; 82570; 84156; 85025; 99215

== ENCOUNTER 2023-02-03 08:31 | Outpatient (CLI) | payer OTHER ==
[2023-02-03 08:49] VITALS: BP 125/72
[2023-02-03 08:58] LABS: BASOPHILS # (AUTO) 0.1 10^3/uL (0.0-0.1); BASOPHILS % (AUTO) 0.5 %; EOSINOPHILS # (AUTO) 0.2 10^3/uL (0.0-0.7); EOSINOPHILS % (AUTO) 2.3 %; HCT - HEMATOCRIT 38.6 % (37.0-47.0); HGB - HEMOGLOBIN 12.9 g/dL (12.0-16.0); LYMPHOCYTES # (AUTO) 1.3 10^3/uL (1.5-3.5); MEAN CORPUSCULAR HEMOGLOBIN 29.6 pg (27.0-31.0); MEAN CORPUSCULAR HGB CONC 33.4 g/dL (32.0-36.0); MEAN CORPUSCULAR VOLUME 88.5 fL (81.0-99.0); MEAN PLATELET VOLUME 9.9 fL (7.9-10.8); MONOCYTES # (AUTO) 0.7 10^3/uL (0.0-1.0); MONOCYTES % (AUTO) 7.5 %; NEUTROPHILS # (AUTO) 7.2 10^3/uL (1.5-6.6); NEUTROPHILS % (AUTO) 74.9 %; PLT - PLATELET COUNT 162 10^3/uL (130-450); RED BLOOD COUNT 4.36 10^6/uL (4.20-5.40); RED CELL DISTRIBUTION WIDTH 13.7 % (12.0-15.0); WHITE BLOOD COUNT 9.7 x10^3/uL (4.8-10.8)
[2023-02-03 09:06] LABS: CREATININE,URINE 61.7 mg/dL; PROTEIN/CREATININE RATIO,URINE 0.1 (<=0.2)
[2023-02-03 09:14] LABS: BILIRUBIN,TOTAL 0.5 mg/dL (0.2-1.0); CALCIUM 8.9 mg/dL (8.5-10.3); CREATININE 0.6 mg/dL (0.4-1.0); POTASSIUM 4.1 mmol/L (3.5-5.0); TOTAL PROTEIN 6.1 g/dL (6.7-8.2)
--- NOTE | 2023-02-04 11:39 | PROVIDER PROGRESS NOTE ---
- HPI Chief Complaint: Hypertension/PIH Current : Current EDU 02/04/23 Gestation 39 Weeks and 6 Days 2 Para 1 Vital Signs Temperature 36.9 C 02/03/23 08:43 Heart Rate 97 02/03/23 08:43 Respiratory Rate 18 02/03/23 08:43 Blood Pressure 125/72 02/03/23 08:43 Temperature 36.9 C 02/03/23 08:43 Heart Rate 97 02/03/23 08:43 Respiratory Rate 18 02/03/23 08:43 Blood Pressure 125/72 02/03/23 08:43 O2 Saturation If not protocol: Oxygen Flow, liters/minute - Procedures OB Procedure Performed: NST Diagnosis/Indication for NST: Gestational Hypertension NST Procedure: NST Procedure Start Date 02/03/23 Start Time 08:40 Stop Time 09:10 Vibroacoustic Stimulation Used No Patient States Movement Yes - Plan Plan: Balaji is a 27yo @ 39.6wks gestation by LMP c/w 7.3wks gestation. She presents to [facility] for evaluation secondary to elevated blood pressures at home. She reports intermittent headache denies current headache. She denies visual disturbances, RUQ or epigastric pain. She denies vaginal bleeding or leakage of fluid and reports +FM. She has had intermittent contractions over the past several days but they have remained intermittent and inconsistent. NST reactive. FHR basseline 135, moderate variability, + accels, no decels Contractions palpate mild occasionally with soft resting tone SVE deferred. CBC WNL CMP WNL Urine protein/creatinine ratio 0.1 Pt released home with precautions secondary to staffing concerns on the unit. Carefully reviewed warning s/sx and when to present. She verbalized understanding and agrees to above plan. She denies further questions or concerns at this time. FINAL DIAGNOSIS: Gestational hypertension, third trimester
== END 2023-02-03 09:40 | disposition home or self-care (01) ==
LOC: WFO 08:31 → FBP 08:33 → WFO 09:40
PROVIDERS: ATTEND Nurse Practitioner Obstetrics & Gynecology
DX: O13.3 Gestational [pregnancy-induced] hypertension without significant proteinuria, third trimester (principal); Z3A.39 39 weeks gestation of pregnancy
CPT/HCPCS: 36415; 59025; 80053; 82570; 84156; 85025

== ENCOUNTER 2023-02-04 08:10 | Inpatient (IN) | payer OTHER ==
[2023-02-04] MEDS ORDERED: METHYLERGONOVINE 0.2 MG/ML VIAL IM PRN (09:13)
[2023-02-04] MEDS ORDERED: miSOPROStoL 200 MCG TABLET BC PRN (09:13)
[2023-02-04] MEDS ORDERED: CARBOPROST TROMETHAMINE 250 MCG/ML AMP IM PRN (09:13)
[2023-02-04] MEDS ORDERED: lidocaine 1% 20 ML MDV ID PRN (09:13)
[2023-02-04] MEDS ORDERED: SODIUM CHLORIDE FLUSH 0.9% 10 ML SYRINGE IVP PRN (09:13)
[2023-02-04] MEDS ORDERED: TRANEXAMIC ACID IN NACL 1,000 MG/100 ML BAG IV PRN (09:13)
[2023-02-04] MEDS ORDERED: OXYTOCIN 10 UNIT/ML VIAL IM PRN (09:13)
[2023-02-04] MEDS ORDERED: OXYTOCIN/SODIUM CHLORIDE 500 ML IV PRN (09:13)
--- NOTE | 2023-02-04 09:19 | HISTORY & PHYSICAL EXAMINATION ---
Admit History - Visit Reason Visit Reason: Other - : 2 Parity: 1 Premature: 0 Ectopic: 0 : 0 Care: positive: [facility] Risk/History: positive: None Complications This : positive: induced HTN Smoking Status: Never smoker - Mother's Labs Mother's Blood Type: positive: A Mother's RH: positive: Positive GBS: positive: Group B Step Negative Rubella Status: positive: Immune Meds/Allgy - Home Medications Home Medications: Ambulatory Orders Medication Instructions Recorded Confirmed No115/Iron/Folic Acid 1 09/28/18 [ 19 Chewable Tablet] - Allergies Allergies/Adverse Reactions: Allergies Allergy/AdvReac Type Severity Reaction Status Date / Time ciprofloxacin Allergy Unknown Verified 03/18/22 15:38 Review of Systems - Constitutional Constitutional: denies: Fatigue, Fever, Chills - Eyes Eyes: denies: Blurred vision, Spots in vision, Dipolpia - Cardiovascular Cariovascular: denies: Irregular heart rate, Palpitations, Chest pain, Edema - Respiratory Respiratory: denies: Cough, Wheezing, SOB at rest - Gastrointestinal Gastrointestinal: denies: Constipation, Diarrhea, Nausea, Vomiting - Genitourinary Genitourinary: denies: Dysuria - Musculoskeletal Musculoskeletal: denies: Back pain - Integumentary Integumentary: denies: Rash, Pruritis - Neurological Neurological: denies: Headache - Psychiatric Psychiatric: denies: Depression, Anxiety - Hematologic/Lymphatic Hematologic/Lymphatic: denies: Anemia Physical - Abdominal Exam Contraction Frequency (min/apart): occasional Contraction Intensity: positive: Mild Uterine Resting Tone: positive: Soft - Monitoring Heart Rate Baseline: 135 Strip Review: positive: Category I - Presentation Presentation: positive: Vertex - Vaginal Exam Membranes: positive: Membranes intact - Speculum Exam Speculum Exam Performed: positive: No Plan for Labor - Plan For Labor I expect patient to be DC'd or transferred within 96 hours.: Yes Plan for Labor: HPI: Balaji is a 27yo @ 40.0wks gestation by LMP c/w 7.3wk U/S who presents to [facility] today for medical induction of labor secondary to gestational hypertension. She denies headache currently but has experienced intermittent headaches over the past week. She denies visual disturbances, RUQ or epigastric pain. She denies vaginal bleeding, leakage of fluid or contractions. She reports +FM. Cervical exam was deferred upon arrival secondary to recent SVE /-3, posterior and vertex and she has not experienced any significant uterine activity over the past 48hrs. She has been a patient of [facility] for the duration of her which has remained uncomplicated with the exception of recent onset gestational hypertension with intermittent, mildly elevated blood pressures. She has received consistent care for the duration of her . She will be admitted to [facility] for pre-induction cervical ripening with misoprostol. She is supported by her Nitin and her tumbler dyeing machine operator Awilda. 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 SAB x0. Last pap 2017, No hx of abnormals. Medical Hx: IBS, chronic migraines, anxiety Surgical Hx: tonsillectomy 2003 Family Hx: Heart disease - Maternal aunt, MGF; HTN - maternal aunt, MGF, mother; Lung disease - PGF; Cancer - PGF; Seizure - PGM; GI disease - maternal aunt, mother; Depression - mother, siblings; Mental illness - mother, siblings, maternal aunt, MGM Meds: PNV, Mg, tumeric, glutamine, glutathione supplements Allergies: Ciproheptadine, cats, gluten sensitivity Social: to Nitin. 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 No tobacco, ETOH or recreational drug use. Caffeine intake -minimal. course: A positive, antibody negative Rubella immune; varicella immune Initial U/S @ 7.3wks gestation c/w LMP dating Tdap - declined Influenza - declined COVID-19 vaccine - declined FAS WNL. Posterior placenta, no previa. Size c/w dating (EFW 69%tile). 3VC. Glucola - declined. Tracking BG x 4 weeks and all were WNL. Not at risk for gestational diabetes. GBS Negative Physicial exam: Normocephalic, atraumatic Heart RRR w/o M/G/R Lungs CTAB Abdomen gravid, soft, nontender. EFW 3800g FHR baseline 135, moderate variability, + accels, no decels Contractions palpate mild occasionally with soft resting tone SVE deferred at this time Bilateral LE's trace edema. DTRs 1+, no clonus Assessment: 27yo @ 40.0wks gestation by LMP c/w 7.3wk U/S Gestational hypertension FHR Category I GBS negative Plan: Admit to observation for pre-induction cervical ripening. 25mcg BC misoprostol q 4 hrs. SVE prior to next dose. Continuous monitoring. Jacuzzi PRN. Nitrous oxide PRN. Epidural per maternal request. Anticipate .
[2023-02-04] MEDS: miSOPROStoL 100 MCG TABLET BC SCH ×2 (09:37→16:25)
[2023-02-04 09:47] LABS: BASOPHILS # (AUTO) 0.1 10^3/uL (0.0-0.1); BASOPHILS % (AUTO) 0.5 %; EOSINOPHILS # (AUTO) 0.2 10^3/uL (0.0-0.7); EOSINOPHILS % (AUTO) 1.9 %; HCT - HEMATOCRIT 37.9 % (37.0-47.0); HGB - HEMOGLOBIN 12.9 g/dL (12.0-16.0); LYMPHOCYTES # (AUTO) 1.4 10^3/uL (1.5-3.5); MEAN CORPUSCULAR HEMOGLOBIN 29.7 pg (27.0-31.0); MEAN CORPUSCULAR VOLUME 87.1 fL (81.0-99.0); MEAN PLATELET VOLUME 10.4 fL (7.9-10.8); MONOCYTES % (AUTO) 8.9 %; NEUTROPHILS % (AUTO) 73.2 %; PLT - PLATELET COUNT 165 10^3/uL (130-450); RED BLOOD COUNT 4.35 10^6/uL (4.20-5.40); RED CELL DISTRIBUTION WIDTH 13.6 % (12.0-15.0)
[2023-02-04 09:59] LABS: ALBUMIN 3.1 g/dL (3.2-5.5); BILIRUBIN,TOTAL 0.2 mg/dL (0.2-1.0); CALCIUM 8.9 mg/dL (8.5-10.3); CREATININE 0.6 mg/dL (0.4-1.0); POTASSIUM 4.2 mmol/L (3.5-5.0); TOTAL PROTEIN 6.1 g/dL (6.7-8.2)
--- NOTE | 2023-02-04 14:06 | PROVIDER PROGRESS NOTE ---
Labor Progress Note - Uterine Monitoring Uterine Monitoring Mode: positive: External toco Contraction Frequency (min/apart): 2-4 Contraction Intensity: positive: Mild Uterine Resting Tone: positive: Soft - Monitoring Monitor Mode: positive: External ultrasound Heart Rate Baseline: 135 Heart Rate Variability: positive: Moderate (6-25 bmp) Accelerations: positive: Present, 15x15 Decelerations: positive: None Strip Review: positive: Category I - Vaginal Exam Dilation (in cm): 1 Effacement (%): 75 Station: -2 Cervical Position: Midposition - Labor Progress Note Labor Progress Note/Additional Text: S: Pt beginning to feel consistent contractions. She states they feel mild and but they are seeming to increase in intensity a bit as well however she can still talk easily through them. She denies MENDEZ, visual distrubances, RUQ or epigastric pain. She denies vaginal bleeding or leakage of fluid. She reports +FM. Her , sister, and railroad car repairman are all present at the bedside for support. O: FHR baseline 135, moderate variability, + accels, no decels Contractions palpate mild every 2-4 min with soft resting tone SVE 1/75/-2, midposition, medium. Vertex. Intact membranes S/p 1 dose of 25mcg BC misoprostol Cervical ripening balloon placed with 60mL NS intrauterine and 60mL NS vaginal balloons. Pt tolerated placement well. A: 27yo @ 40.0wks gestation by LMP c/w 7.3wk U/S Gestational hypertension GBS negative FHR Category I P: Leave cervical ripening balloon in place x 12 hours. Administer misoprostol 25mcg if contractions fall less than q 4 min or decrease in intensity. AROM when cervical ripening balloon is expelled. Continuous monitoring. Jacuzzi PRN. Nitrous oxide PRN. Epidural per maternal request. Anticipate .
[2023-02-04] MEDS ORDERED: SODIUM CHLORIDE FLUSH 0.9% 10 ML SYRINGE IVP SCH (17:00)
[2023-02-04] MEDS ORDERED: OXYTOCIN/SODIUM CHLORIDE 500 ML IV SCH (20:59)
[2023-02-04] MEDS: LACTATED RINGERS 1,000 ML IV SCH (22:45)
--- NOTE | 2023-02-05 01:51 | PROVIDER PROGRESS NOTE ---
Labor Progress Note - Uterine Monitoring Uterine Monitoring Mode: positive: External toco Contraction Frequency (min/apart): 2-4 Contraction Intensity: positive: Mild to moderate - Monitoring Monitor Mode: positive: External ultrasound Heart Rate Baseline: 120 Heart Rate Variability: positive: Moderate (6-25 bmp) Accelerations: positive: Present, 15x15 Decelerations: positive: None Strip Review: positive: Category I - Vaginal Exam Dilation (in cm): 4 Effacement (%): 75 Station: -2 Cervical Position: Anterior - Labor Progress Note Labor Progress Note/Additional Text: S: Laying in bed and coping with contractions easily. She states they are beginning to feel slightly more uncomfortable but she continues to feel like they are more menstrual-like and can easily talk through them. She states she is feeling good about our plan of care. Her and regulator operator are supportive at the bedside. O: FHR baseline 120s, moderate variability, + accels, no decels Contractions palpate mild to moderate every 2-4 minutes with soft resting tone Cervical ripening balloon removed secondary to having been in place x 12 hrs. SVE 4/75/-2, anterior. Vertex. AROM small amount of pink amniotic fluid Pitocin currently at 4mU/mL A: 27yo @ 40.1wks gestation Gestational hypertension FHR Category I GBS negative P: Continue medical induction of labor. Continue titration of pitocin for induction of labor per protocol. Continuous monitoring. Jacuzzi PRN. Nitrous oxide PRN. Epidural per maternal request. Anticipate .
[2023-02-05] MEDS: CALCIUM CARBONATE CHEW 500 MG TABLET PO SCH ×2 (02:46→20:04)
[2023-02-05] MEDS: ONDANSETRON 4 MG/2 ML VIAL IVP PRN ×2 (02:58→04:14)
[2023-02-05] MEDS ORDERED: ROPIVACAINE 0.2% 200 MG/100 ML BAG EP ONE (03:43)
[2023-02-05] MEDS ORDERED: diphenhydrAMINE INJ 50 MG/ML VIAL IVP PRN (04:30)
[2023-02-05] MEDS ORDERED: METOCLOPRAMIDE 10 MG/2 ML VIAL IVP PRN (04:30)
[2023-02-05] MEDS ORDERED: ROPIVACAINE 0.2% 200 MG/100 ML BAG EP PRN (04:30)
[2023-02-05] MEDS ORDERED: NALBUPHINE 10 MG/ML AMP IVP PRN (04:30)
[2023-02-05] MEDS ORDERED: ONDANSETRON 4 MG/2 ML VIAL IVP PRN (04:30)
[2023-02-05] MEDS ORDERED: ePHEDrine 50 MG/ML VIAL IVP PRN (04:30)
[2023-02-05] MEDS ORDERED: NALOXONE 0.4 MG/ML VIAL IVP PRN (04:30)
--- NOTE | 2023-02-05 04:30 | ANESTHESIA ---
Pre-Anesthesia VS, & Labs - Diagnosis active labor - Procedure labor epidural Vital Signs: Temp Pulse Resp BP Pulse Ox O2 Flow Rate 36.7 C 66 18 124/65 100 02/04/23 23:15 02/04/23 23:15 02/04/23 23:15 02/04/23 23:15 02/04/23 23:15 Height: 5 ft 5 in Weight (kg): 90.718 kg Body Mass Index: 33.3 BMI Classification: Obese - NPO >8 hours - Is Patient ?: Yes - Lab Results Current Lab Results: Laboratory Tests 02/04/23 09:39: Blood Type A POSITIVE, Antibody Screen NEGATIVE 02/04/23 09:00: Sodium 137, Potassium 4.2, Chloride 110, Carbon Dioxide 21, Anion Gap 6.0, BUN 13, Creatinine 0.6, Estimated GFR (MDRD) 120, Glucose 94, Calcium 8.9, Total Bilirubin 0.2, AST 19, ALT 13, Alkaline Phosphatase 128 H, Total Protein 6.1 L, Albumin 3.1 L, Globulin 3.0, Albumin/Globulin Ratio 1.0 02/04/23 09:00: WBC 11.0 H, RBC 4.35, Hgb 12.9, Hct 37.9, MCV 87.1, MCH 29.7, MCHC 34.0, RDW 13.6, Plt Count 165, MPV 10.4, Neut # (Auto) 8.0 H, Lymph # (Auto) 1.4 L, [place] # (Auto) 1.0, Eos # (Auto) 0.2, Baso # (Auto) 0.1, Absolute Nucleated RBC 0.00, Nucleated RBC % 0.0 Fish Bones: 02/04/23 09:00 02/04/23 09:00 Home Medications and Allergies Active Medications Calcium Carbonate/Glycine (Calcium Carbonate Chew 500 Mg Tablet) 1,000 mg PO Q4HR MARQUITA Last Admin: 02/05/23 02:46 Dose: 1,000 mg Carboprost Tromethamine (Carboprost Tromethamine 250 Mcg/Ml Amp) 250 mcg IM Q15M PRN PRN Reason: Step 4: Hemorrhage protocol Stop: 02/09/23 09:14 Oxytocin/Sodium Chloride (Pitocin/Sodium Chloride) 500 mls @ 999 mls/hr IV PRN PRN; Protocol PRN Reason: POST- HEMORR PREVENTION Stop: 02/09/23 09:14 Tranexamic Acid (Tranexamic 1,000 Mg/100ml-Nacl) 1,000 mg in 100 mls @ 600 mls/hr IV .ONCE PRN PRN Reason: EBL >1200mL and within 3hr Stop: 02/09/23 09:14 Lactated Ringer's (Lr) 1,000 mls @ 100 mls/hr IV .Q10H MARQUITA Last Admin: 02/04/23 22:45 Dose: 100 mls/hr Oxytocin/Sodium Chloride (Pitocin/Sodium Chloride) 500 mls @ 1 mls/hr IV TITR MARQUITA; Protocol Last Titration: 02/05/23 03:05 Dose: 2.5 milliunit/min, 2.5 mls/hr Lidocaine HCl (Lidocaine 1% 20 Ml Mdv) 20 ml ID .ONCE PRN PRN Reason: PERINEAL REPAIR Stop: 02/09/23 09:14 Methylergonovine Maleate (Methylergonovine 0.2 Mg/Ml Vial) 0.2 mg IM .ONCE PRN PRN Reason: Step 2: Hemorrhage protocol Stop: 02/09/23 09:14 Misoprostol (Misoprostol 200 Mcg Tablet) 800 mcg BC .ONCE PRN PRN Reason: Step 3: Hemorrhage protocol Stop: 02/09/23 09:14 Misoprostol (Misoprostol 100 Mcg Tablet) 25 mcg BC Q4H MARQUITA Last Admin: 02/04/23 16:25 Dose: 25 mcg Ondansetron HCl (Ondansetron 4 Mg/2 Ml Vial) 4 mg IVP Q4HR PRN PRN Reason: Nausea / Vomiting Last Admin: 02/05/23 04:14 Dose: 4 mg Oxytocin (Oxytocin 10 Unit/Ml Vial) 10 unit IM .ONCE PRN PRN Reason: Step one: If no IV access Stop: 02/09/23 09:14 Sodium Chloride (Sodium Chloride Flush 0.9% 10 Ml Syringe) 10 ml IVP 0100,0900,1700 MARQUITA Sodium Chloride (Sodium Chloride Flush 0.9% 10 Ml Syringe) 10 ml IVP PRN PRN PRN Reason: NEEDED PER PROVIDER ORDERS No115/Iron/Folic Acid [ 19 Chewable Tablet] 1 09/28/18 Allergies/Adverse Reactions: Allergies Allergy/AdvReac Type Severity Reaction Status Date / Time ciprofloxacin Allergy Unknown Verified 03/18/22 15:38 Anes History & Medical History - Anesthetic History Anesthesia Complications: reports: No previous complications Family history of Anesthesia Complications: Denies Family history of Malignant Hyperthermia: Denies - Medical History Cardiovascular: reports: None Pulmonary: reports: None Smoking Status: Never smoker - Surgical History Eyes Ears Nose Throat (EENT): reports: Tonsil/Adenoidectomy - Obstetrical History : 2 Parity: 1 Events: reports: None Complications: reports: induced HTN Exam General: Alert, Oriented x3, Cooperative Dental: WNL Mouth Openin Fingerbreadth Neck Mobility: Normal Mallampati classification: II Thyromental Distance: 4-6 cm Respiratory: Lungs clear Cardiovascular: Regular rate Plan Anesthesia Type: Epidural Consent for Procedure(s) Verified and Reviewed: Yes Code Status: Attempt Resuscitation ASA classification: 2-Mild systemic disease Is this case an emergency?: No
[2023-02-05] MEDS: LACTATED RINGERS 1,000 ML IV SCH (06:20)
--- NOTE | 2023-02-05 06:51 | PROVIDER PROGRESS NOTE ---
Labor Progress Note - Uterine Monitoring Uterine Monitoring Mode: positive: External toco Contraction Frequency (min/apart): 2-4 Contraction Intensity: positive: Strong Uterine Resting Tone: positive: Soft - Monitoring Monitor Mode: positive: External ultrasound Heart Rate Baseline: 120 Heart Rate Variability: positive: Moderate (6-25 bmp) Accelerations: positive: Present, 15x15 Decelerations: positive: Variable, Intermittent (<50% x20 min) Strip Review: positive: Category II - Vaginal Exam Dilation (in cm): 10 Effacement (%): 100 Station: -1
[2023-02-05] MEDS ORDERED: HYDROCORTISONE 1% CREAM 28 GM TUBE PR PRN (08:03)
[2023-02-05] MEDS ORDERED: WITCH HAZEL/GLYCERIN 1 PAD TOP PRN (08:03)
--- NOTE | 2023-02-05 08:11 | DELIVERY NOTE ---
Delivery Note - Labor Labor: positive: Induced by ARM, Induced by oxytocin - Infant Delivery Method Delivery Method: positive: Spontaneous vaginal delivery - Cervical Ripening Method Cervical Ripening Method: positive: Balloon device, Misoprostil - Presentation Presentation: positive: JACOB - left occiput anterior - Nuchal Cord Nuchal Cord: positive: None - Amniotic Fluid Description Amniotic Fluid Description: positive: Clear - Episiotomy Type Episiotomy Type: positive: None - Laceration Laceration: positive: None - Delivery Outcome Delivery Outcome: positive: Livebirth - : positive: Placed in direct skin contact with mother, Stimulated, Warmed, Mccausland used sex: positive: Male - Cord Cord: positive: 3 vessels - Placenta Placenta: positive: Intact, Spontaneous - Estimated Blood Loss Estimated Blood Loss (in cc): 250 - Post Delivery Events Post Delivery Events: positive: No post delivery events - Delivery Comments (Free Text/Narrative) Delivery Comments (Free Text/Narrative): Labor: This 27yo @ 40.1wks gestation by LMP c/w 7.3wk gestation for medical induction of labor secondary to gestational hypertension. Cervix was 1/50/-2, and vertex with intact membranes. She received 2 doses of 25mcg BC misoprostol and a cervical ripening balloon which was in place x 12 hours for pre-induction cervical ripening. Pitocin was initiated for induction of labor for a maximum infusion rate of 5mU/mL. AROM occurred at 0133 and was noted to be a small amount of clear fluid. FHR pattern demonstrated Category I pattern with intermittent periods of category II. Normal labor course. Epidural was placed per maternal request. Pt progressed to c/c/+1 at 0646 with onset of spontaneous pushing at 0707. : Normal SVB of a viable male on 02/05/2023 @ 0722. No nuchal cord. The was placed on maternal abdomen, stimulated, dried, and placed skin to skin. 's were 9/9 at 1 and 5 minutes respectively. The umbilical cord was allowed to stop pulsating at which time it was doubly clamped by CNM and cut by support person. 3VC. Cord blood was obtained. Fundal massage and gentle cord traction applied for active management of the third stage. Pt declined initiation of pitocin. EBL 200mL. Fourth stage: Uterine fundus firm and there is no excessive bleeding. The perineum, vagina, and cervix were inspected and noted to be intact. initiated. Family bonding well. Both mother and baby were left in stable condition.
[2023-02-05] MEDS ORDERED: DOCUSATE SODIUM 100 MG CAPSULE PO SCH (09:00)
[2023-02-05] MEDS ORDERED: IBUPROFEN 800 MG TABLET PO SCH (09:00)
[2023-02-05] MEDS ORDERED: ACETAMINOPHEN 500 MG TABLET PO SCH (09:00)
--- NOTE | 2023-02-05 22:28 | Labor Flowsheet ---
Labor Flowsheet Datetime Report Generated by CPN: 02/05/2023 22:28 Datetime: 02/05/2023 19:30 VITAL SIGNS NBP Sys/Adriana/Mean (mmHg): 137 : 78 : 89 Pulse: 94 Datetime: 02/05/2023 09:30 Stage of : Datetime: 02/05/2023 07:22 Stage 2 Comments: baby boy born at 0722 Datetime: 02/05/2023 07:15 UTERINE ACTIVITY Monitor Mode: External Frequency (min): 2m Quality: Strong Duration (sec): 70-110s Pattern: Normal: <= 5 Contractions in 10 Minutes Resting Tone (Palpate): Relaxed Contraction Comments: Patient pushing ASSESSMENT A Monitor Mode: External US FHR Baseline Rate : 120 FHR Baseline Changes: No Baseline Change Variability: Moderate 6-25 bpm Accelerations: 15X15 Decelerations: Variable Category: Category II Comments: Broken tracing. Likely varibles while pusing. RN at bedside handholding Pushing Position: Pushing with Contractions; Pushing Right Side Pushing Progress: Descent with Pushing LaborFlag: Labor Datetime: 02/05/2023 07:14 STAGE 2 Pushing: Coached on Pushing Datetime: 02/05/2023 07:07 Station: 1 Datetime: 02/05/2023 07:06 COMMUNICATION Communication: RN at Bedside Datetime: 02/05/2023 06:46 VAGINAL EXAM Dilatation (cm): 10.0 Effacement (%): 100 Datetime: 02/05/2023 06:45 Actions for Decelerations: Sterile Vaginal Exam Datetime: 02/05/2023 06:44 Provider Reviewed Strip: Yes Datetime: 02/05/2023 06:30 Notification Reason: Status Update; Labor Status Communication Comments: Provider to be in to evaluate Datetime: 02/05/2023 06:00 Monitor Interventions for UA: Chappell Adjusted Datetime: 02/05/2023 05:51 MEDICATIONS Pitocin (milliunits): Discontinued Datetime: 02/05/2023 04:44 SpO2 (%): 98 Datetime: 02/05/2023 04:41 Exam by: J. Alfredo, RN Datetime: 02/05/2023 04:39 I/O Interventions: Healy Cath Inserted Datetime: 02/05/2023 04:19 Epidural Procedure: Completed Epidural Procedure Other: Pump Started; Delivery Dose Datetime: 02/05/2023 03:55 PROCEDURE TIME OUT Procedure Verify: Correct Patient Identity; Correct Side and Site are Marked; Accurate Procedure Co nsent Form; Agreement on Procedure to be Done; Correct Patient Position; Safety Precautions Based on Patient History or Medication Use Datetime: 02/05/2023 03:53 PATIENT CARE Patient Position/Activity: High Fowlers Patient Care Comments: Sitting on edge of bed for epidural Datetime: 02/05/2023 03:49 ANESTHESIA Anesthesia Plans: Epidural Epidural Positioning: Sitting Datetime: 02/05/2023 03:30 Temperature (C): 36.8 Datetime: 02/05/2023 02:26 Antiemetics/Antacids: Other Antiemetic/Antacid @ Medication Comments: Tums-calcium carbonate Datetime: 02/05/2023 01:45 Pitocin Checklist: At Least 1 Acceleration of 15 bpm x 15 Seconds in 30 Minutes or Adequate Variabi lity; No More than 1 Late Deceleration Occurred in Past 30 Minutes; No More than 2 Variable Decelerat ions > 60 Seconds in Duration and decreasing >60 bpm in 30 minutes; No More than 5 Uterine Contractio ns in 10 Minutes for any 20 Minute Interval; Uterus Palpates Soft between Contractions Datetime: 02/05/2023 01:37 Vaginal Bleeding: Normal Show Cervix, Consistency: Soft Cervix, Position: Anterior Vaginal Exam Comments: Cervix is extremely anterior Datetime: 02/05/2023 01:33 Membrane Status: Ruptured Membranes Rupture Method: Artificial Amniotic Fluid Color: Bloody Amniotic Fluid Amount: Small Membrane Comments: fluid mixed with mucus and coagulated blood. Unable to adequately determine colo r at this time Datetime: 02/05/2023 01:32 Cervical Ripening Agents: Healy Balloon; Cytotec @ Datetime: 02/04/2023 20:00 Monitor Interventions for FHR: Ultrasound Adjusted
[2023-02-06] MEDS: CALCIUM CARBONATE CHEW 500 MG TABLET PO SCH (00:43)
[2023-02-06] MEDS ORDERED: OXYTOCIN/SODIUM CHLORIDE 500 ML IV PRN (02:15)
[2023-02-06] MEDS ORDERED: IBUPROFEN 800 MG TABLET PO SCH (02:15)
[2023-02-06] MEDS ORDERED: SODIUM CHLORIDE FLUSH 0.9% 10 ML SYRINGE IVP PRN (02:15)
[2023-02-06] MEDS ORDERED: CARBOPROST TROMETHAMINE 250 MCG/ML AMP IM PRN (02:16)
[2023-02-06] MEDS ORDERED: miSOPROStoL 200 MCG TABLET BC PRN (02:16)
[2023-02-06] MEDS ORDERED: OXYTOCIN 10 UNIT/ML VIAL IM PRN (02:16)
[2023-02-06] MEDS ORDERED: TRANEXAMIC ACID IN NACL 1,000 MG/100 ML BAG IV PRN (02:16)
[2023-02-06] MEDS ORDERED: METHYLERGONOVINE 0.2 MG/ML VIAL IM PRN (02:16)
[2023-02-06] MEDS ORDERED: lidocaine 1% 20 ML MDV ID PRN (02:17)
[2023-02-06] MEDS ORDERED: ONDANSETRON 4 MG/2 ML VIAL IVP PRN ×2 (02:17→02:18)
[2023-02-06] MEDS ORDERED: METOCLOPRAMIDE 10 MG/2 ML VIAL IVP PRN (02:18)
[2023-02-06] MEDS ORDERED: diphenhydrAMINE INJ 50 MG/ML VIAL IVP PRN (02:18)
[2023-02-06] MEDS ORDERED: ePHEDrine 50 MG/ML VIAL IVP PRN (02:19)
[2023-02-06] MEDS ORDERED: NALBUPHINE 10 MG/ML AMP IVP PRN (02:19)
[2023-02-06] MEDS ORDERED: ROPIVACAINE 0.2% 200 MG/100 ML BAG EP PRN (02:19)
[2023-02-06] MEDS ORDERED: NALOXONE 0.4 MG/ML VIAL IVP PRN (02:19)
[2023-02-06] MEDS ORDERED: HYDROCORTISONE 1% CREAM 28 GM TUBE PR PRN (02:19)
[2023-02-06] MEDS ORDERED: WITCH HAZEL/GLYCERIN 1 PAD TOP PRN (02:20)
[2023-02-06] MEDS ORDERED: OXYTOCIN/SODIUM CHLORIDE 500 ML IV SCH (03:00)
[2023-02-06] MEDS ORDERED: miSOPROStoL 100 MCG TABLET BC SCH (03:00)
[2023-02-06] MEDS ORDERED: LACTATED RINGERS 1,000 ML IV SCH (03:00)
[2023-02-06] MEDS ORDERED: CALCIUM CARBONATE CHEW 500 MG TABLET PO SCH (05:00)
[2023-02-06 07:59] VITALS: BP 120/69
[2023-02-06] MEDS ORDERED: SODIUM CHLORIDE FLUSH 0.9% 10 ML SYRINGE IVP SCH (09:00)
[2023-02-06] MEDS ORDERED: DOCUSATE SODIUM 100 MG CAPSULE PO SCH (09:00)
[2023-02-06] MEDS ORDERED: ACETAMINOPHEN 500 MG TABLET PO SCH (09:00)
--- NOTE | 2023-02-06 12:09 | Discharge Plan ---
Discharge Plan Problem Reviewed?: Yes Disposition: Home, Self Care Condition: Good Diet: Regular Activity Restrictions: No Restrictions Shower Restrictions: No Driving Restrictions: No Weight Bearing: Full Weight Instruction Topics: Vaginal After No Smoking: If you smoke, Please STOP! Call for help. Follow-up with: Rekha Tse CNM, ARNP [Provider Admit Priv/Credential] - 2 Weeks (WednesdayFebruary 17 @ 10:45am, phone visit with Rekha Tse CNM/RUTH)
--- NOTE | 2023-02-06 12:16 | DISCHARGE SUMMARY ---
Discharge Summary Condition at Discharge: Good Discharge Disposition: 01 Home, Self Care - HOSPITAL COURSE Hospital Course: Date of Admission: 02/04/2023 Date of Discharge: 02/06/2023 Diagnosis on Admission: 1. 27yo @ 40.0wks gestation by LMP c/w 7.3wk U/S 2. Gestational hypertension 3. FHR Category I 4. GBS negative Diagnosis on Discharge: 1. 27yo PPD#1 s/p TSVB viable male infant 2. 3. Normal recovery Brief History: She is a patient of [facility] who presented on 02/04/2023 for medical induction of labor secondary to gestational hypertension. She received 2 doses of 25mcg BC misoprostol and a cervical ripening balloon which was in place x 12 hours for pre-induction cervical ripening. Pitocin was initiated for induction of labor for a maximum infusion rate of 5mU/mL. AROM occurred at 0133 and was noted to be a moderate amount of clear fluid. She progressed to spontaneously deliver a viable male infant on 02/05/2023 @ 0722 over intact perineum. Apgars were 9/9 at 1 and 5 minutes respectively. She has been doing well in her course. She is ambulating and tolerating a regular diet. She is urinating without difficulty and her lochia is normal. Her pain is well controlled with oral medications. She is bonding well with her baby and without difficulty. She will be discharged home today on day #1 with instructions to continue taking her vitamin while and to continue taking ibuprofen and tylenol over the counter as needed for pain management. She intends to follow up with myself at [facility] in 10 days for routine visit or sooner if needed. She has been given precautions to call if she has any worsening fevers, chills, abdominal pain, increased vaginal bleeding or foul smelling vaginal lochia. Physical Exam: Normocephalic, atraumatic. Heart RRR w/o M/G/R, lungs CTAB, abdomen gravid, soft, nontender with fundus firm at U, perineum intact, light lochia rubra, bilateral LE's trace edema. - ALLERGIES Allergies/Adverse Reactions: Allergies Allergy/AdvReac Type Severity Reaction Status Date / Time ciprofloxacin Allergy Unknown Verified 03/18/22 15:38 - MEDICATIONS Home Medications: Ambulatory Orders Medication Instructions Recorded Confirmed No115/Iron/Folic Acid 1 09/28/18 [ 19 Chewable Tablet] - LABS Result Diagrams: 02/04/23 09:00 02/04/23 09:00
--- NOTE | 2023-02-06 17:20 | Labor Flowsheet ---
Labor Flowsheet Datetime Report Generated by CPN: 02/06/2023 17:20 Datetime: 02/06/2023 07:56 VITAL SIGNS NBP Sys/Adriana/Mean (mmHg): 120 : 69 : 80 Pulse: 77 Datetime: 02/05/2023 09:30 Stage of : Datetime: 02/05/2023 07:22 Stage 2 Comments: baby boy born at 0722 Datetime: 02/05/2023 07:15 UTERINE ACTIVITY Monitor Mode: External Frequency (min): 2m Quality: Strong Duration (sec): 70-110s Pattern: Normal: <= 5 Contractions in 10 Minutes Resting Tone (Palpate): Relaxed Contraction Comments: Patient pushing ASSESSMENT A Monitor Mode: External US FHR Baseline Rate : 120 FHR Baseline Changes: No Baseline Change Variability: Moderate 6-25 bpm Accelerations: 15X15 Decelerations: Variable Category: Category II Comments: Broken tracing. Likely varibles while pusing. RN at bedside handholding Pushing Position: Pushing with Contractions; Pushing Right Side Pushing Progress: Descent with Pushing LaborFlag: Labor Datetime: 02/05/2023 07:14 STAGE 2 Pushing: Coached on Pushing Datetime: 02/05/2023 07:07 Station: 1 Datetime: 02/05/2023 07:06 COMMUNICATION Communication: RN at Bedside Datetime: 02/05/2023 06:46 VAGINAL EXAM Dilatation (cm): 10.0 Effacement (%): 100 Datetime: 02/05/2023 06:45 Actions for Decelerations: Sterile Vaginal Exam Datetime: 02/05/2023 06:44 Provider Reviewed Strip: Yes Datetime: 02/05/2023 06:30 Notification Reason: Status Update; Labor Status Communication Comments: Provider to be in to evaluate Datetime: 02/05/2023 06:00 Monitor Interventions for UA: Bowler Adjusted Datetime: 02/05/2023 05:51 MEDICATIONS Pitocin (milliunits): Discontinued Datetime: 02/05/2023 04:44 SpO2 (%): 98 Datetime: 02/05/2023 04:41 Exam by: J. Alfredo, RN Datetime: 02/05/2023 04:39 I/O Interventions: Healy Cath Inserted Datetime: 02/05/2023 04:19 Epidural Procedure: Completed Epidural Procedure Other: Pump Started; Delivery Dose Datetime: 02/05/2023 03:55 PROCEDURE TIME OUT Procedure Verify: Correct Patient Identity; Correct Side and Site are Marked; Accurate Procedure Co nsent Form; Agreement on Procedure to be Done; Correct Patient Position; Safety Precautions Based on Patient History or Medication Use Datetime: 02/05/2023 03:53 PATIENT CARE Patient Position/Activity: High Fowlers Patient Care Comments: Sitting on edge of bed for epidural Datetime: 02/05/2023 03:49 ANESTHESIA Anesthesia Plans: Epidural Epidural Positioning: Sitting Datetime: 02/05/2023 03:30 Temperature (C): 36.8 Datetime: 02/05/2023 02:26 Antiemetics/Antacids: Other Antiemetic/Antacid @ Medication Comments: Tums-calcium carbonate Datetime: 02/05/2023 01:45 Pitocin Checklist: At Least 1 Acceleration of 15 bpm x 15 Seconds in 30 Minutes or Adequate Variabi lity; No More than 1 Late Deceleration Occurred in Past 30 Minutes; No More than 2 Variable Decelerat ions > 60 Seconds in Duration and decreasing >60 bpm in 30 minutes; No More than 5 Uterine Contractio ns in 10 Minutes for any 20 Minute Interval; Uterus Palpates Soft between Contractions Datetime: 02/05/2023 01:37 Vaginal Bleeding: Normal Show Cervix, Consistency: Soft Cervix, Position: Anterior Vaginal Exam Comments: Cervix is extremely anterior Datetime: 02/05/2023 01:33 Membrane Status: Ruptured Membranes Rupture Method: Artificial Amniotic Fluid Color: Bloody Amniotic Fluid Amount: Small Membrane Comments: fluid mixed with mucus and coagulated blood. Unable to adequately determine colo r at this time Datetime: 02/05/2023 01:32 Cervical Ripening Agents: Healy Balloon; Cytotec @ Datetime: 02/04/2023 20:00 Monitor Interventions for FHR: Ultrasound Adjusted
== END 2023-02-06 12:30 | disposition home or self-care (01) | DRG 807 ==
LOC: WFO 08:10 → FBP 08:12 → WFO 09:12 → FBP 09:13 → OBSVTOIN 21:13 → UNDODISIN 02-05 21:15
PROVIDERS: ADMIT Nurse Practitioner Obstetrics & Gynecology; ATTEND Nurse Practitioner Obstetrics & Gynecology
PROC: 10907ZC Drainage of Amniotic Fluid, Therapeutic from Products of Conception, Via Natural or Artificial Opening (ICD-10-PCS; principal; 2023-02-05)
PROC: 10E0XZZ Delivery of Products of Conception, External Approach (ICD-10-PCS; 2023-02-05)
DX: O13.4 Gestational [pregnancy-induced] hypertension without significant proteinuria, complicating childbirth (principal); Z37.0 Single live birth; Z3A.40 40 weeks gestation of pregnancy; Z28.310 Unvaccinated for COVID-19
CPT/HCPCS: 36415; 80053; 85025; 86850; 86900; 86901; A9270; G0378; J7120